=== PATIENT | male | born 1960 | race Caucasian/White ===

== ENCOUNTER 2023-01-20 19:04 | Emergency (ER) | payer MEDICARE, SELFPAY ==
--- NOTE | ~2023-01-20 | CT_ITS ---
EXAMINATION: CT brain wo con DATE: 01/20/2023 19:49 INDICATION: Fall no LOC/HX OF SGTROKE AND LEFT SIDE PARALYSIS . TECHNIQUE: Computed tomography (CT) of the head was performed without intravenous contrast. The mA wa s adjusted according to patient size. Iterative reconstruction technique was employed. The dose-lengt h product was 908.00 mGy-cm. COMPARISON: 04/24/2016. FINDINGS: No acute intracranial hemorrhage or extra-axial fluid collection. No hydrocephalus, mass, or herniation. No acute ischemic infarct. Unremarkable dural venous sinus attenuation. No acute osseous abnormality. The aerated spaces are clear. Mild atrophy and chronic white matter change. Atherosclerotic intracranial calcification. Right sided craniotomy defect. Underlying right temporoparietal encephalomalacia and extensive associated white matter low-density. IMPRESSION: No acute intracranial process. Reviewed, dictated and finalized at location K.
[2023-01-20 19:04] VITALS: BP 154/99; PULSE 104; RESP 18; TEMP 37.6; O2SAT 99
--- NOTE | 2023-01-20 19:07 | ED.FALL ---
HPI - Fall General Chief Complaint: Fall Stated Complaint: Fall; left arm pain and head injury Time Seen by Provider: 01/20/23 19:07 Source: patient, family and RN notes reviewed Mode of arrival: ambulatory Limitations: no limitations History of Present Illness HPI Narrative: patient was on the phone with a friend of his when suddenly the phone by quiet and somebody on the other end of the phone could hear that he was struggling to get up. The friend called family members and family went over there and found him on the floor. They think that he is having some difficulty with his memory. He appeared to have a bloody nose. He said he fell onto his elbow but is not confirmed complaining of any elbow pain. He says that his head does not hurt. Family thought it best to have him checked out thinking he needs CT scan because of the memory problems in the fall. complaint: fall Onset (ago): hour(s) (1.5) Fall from: standing Fall witnessed: no Place fall occurred: home Loss of consciousness: none Prolonged down time: yes Symptoms prior to fall: none Context: tripped/slipped Location of injury: face Location of injury - extremities: Left: elbow Severity: mild Quality: dull and aching Associated symptoms (after fall): denies Related Data Home Medications Medication Instructions Recorded Confirmed amlodipine 10 mg tablet 10 mg PO DAILY 01/20/23 01/20/23 atorvastatin 40 mg tablet 40 mg PO DAILY 01/20/23 01/20/23 hydrochlorothiazide 25 mg tablet 25 mg PO DAILY 01/20/23 01/20/23 levothyroxine 100 mcg tablet 100 mcg PO DAILY 01/20/23 01/20/23 lisinopril 40 mg tablet 40 mg PO DAILY 01/20/23 01/20/23 potassium chloride 20 mEq 20 meq PO DAILY 01/20/23 01/20/23 tablet,extended release spironolactone 25 mg tablet 12.5 mg PO DAILY 01/20/23 01/20/23 Allergies Allergy/AdvReac Type Severity Reaction Status Date / Time No Known Allergies Allergy Verified 01/20/23 19:15 Review of Systems Review of Systems: All systems reviewed & are unremarkable except as noted in HPI and below PMFSH Past Medical History Medical History (Updated 01/20/23 @ 20:10 by Vargas Sherman MD) Brain aneurysm Hyperlipidemia Hypertension Hypothyroidism Surgical History Surgical History (Updated 01/20/23 @ 19:31 by Vargas Sherman MD) H/O brain surgery for aneurysm Social History Social History (Updated 01/20/23 @ 19:31 by Vargas Sherman MD) Smoking status: Never smoker Exam Const: General: healthy appearing, no acute distress and alert Nutritional Appearance: well nourished Orientation/consciousness: patient oriented x3 Limitations: no limitations HENMT: Head: normal to inspection Ears: external ears normal Face/Nose/Sinus: Normal external nose present ( No pain with palpation over the nasal bridge) Face and sinus: normal facial exam Mouth: Yes moist mucous membranes Eyes: Conjunctivae: conjunctivae normal Pupils: Equal, round and reactive pupils present EOM: EOMs intact bilaterally Neck: Neck: normal visual inspection Resp: Effort & Inspection: normal respiratory effort Auscultation: clear to auscultation bilaterally Cardio: Rate: regular rate Rhythm: regular rhythm GI: GI Palp: Yes Soft to palpation and No Tenderness to palpation present (GI) Auscultation: normal bowel sounds Back/Spine/Pelvis: Cervical Spine: cervical ROM normal Thoracic/Lumbar Spine: thoraco-lumbar ROM normal Skin: General skin exam: normal color Rashes: no rashes Neuro: General: patient oriented x3, moves all extremities ( Except for left arm which has a contraction flexure), no focal motor deficits and CN's II-XI intact bilaterally Speech: normal speech Extrem: General: normal exam except as noted ( contraction flexure on the left upper extremity) and no clubbing, cyanosis or edema Left upper extremity: elbow/forearm normal to inspection; no tenderness, no swelling and no ecchymosis Psych: Mental Status: mental status grossly normal Affe
[2023-01-20 19:18] VITALS: BP 154/99; PULSE 104; RESP 18; TEMP 37.6; O2SAT 99
--- NOTE | 2023-01-20 20:09 | PC.NURSE ---
PT IS SITTING UP ON STRETCHER TALKING WITH FAMILY WITHOUT DIFFICULTY. PT IS AWAITING RESULTS AT THIS TIME. NAD NOTED. PT DENIES ANY NEEDS OR COMPLAINTS.
[2023-01-20 20:15] VITALS: BP 142/83; PULSE 96; RESP 18; O2SAT 99
== END 2023-01-20 20:15 | disposition home or self-care (01) ==
PROVIDERS: Emergency Provider Emergency Medicine; PCP Family Medicine
DX: S00.33XA Contusion of nose, initial encounter (principal); E78.5 Hyperlipidemia, unspecified; E03.9 Hypothyroidism, unspecified; I10 Essential (primary) hypertension; W01.0XXA Fall on same level from slipping, tripping and stumbling without subsequent striking against object, initial encounter; Y92.009 Unspecified place in unspecified non-institutional (private) residence as the place of occurrence of the external cause
CPT/HCPCS: 70450; 99284

== ENCOUNTER 2023-02-10 08:56 | Outpatient (RCR) | payer MEDICARE, SELFPAY ==
--- NOTE | 2023-02-10 10:18 | OPREHPOC ---
Outpatient Therapy Plan of Care This is a Multidisciplinary Plan of Care that may contain components documented by all disciplines (PT, OT, and ST.) PT Problem 1 PT Problem #1 Knowledge Deficit PT Goal 1 Goal Patient to demonstrate independence with HEP Target Visit 6 PT Problem 2 PT Problem #2 Impaired Strength PT Goal 1 Goal Patient to demonstrate 4+/5 L hip and knee stength to improve ability to stand up from chair Target Visit 12 PT Problem 3 PT Problem #3 Impaired Functional Mobil PT Goal 1 Goal 1. Patient to improve 5xSTS score to 24 seconds and Tinetti to 19 to decrease fall risk within the home 2. Patient to demonstrate ability to complete 6 min walk test with no rest breaks Target Visit 12
--- NOTE | 2023-02-10 10:19 | PTOPEVAL1 ---
Assessment and note entered by Estefany Chan DPT Evaluation Information Assessment Status Evaluation Diagnosis falls Onset 02/05/23 Subjective Information Patient reports he had a stroke 23 years ago that affected his L side. He reports about 2 weeks ago he fell towards the L side and woke up with a sore L shoulder. He reports he walks with a walking stick at all times. He reports he lives in an apartment with no step or stairs. He reports difficulty with getting up out of a chair and walking prolonged distances. He reports since his fall he has noticed a decrease in balance. Reported Pain Level Pain Score 0: Self Report Assessment PT Clinical Summary Patient is a 63 year old male who presents to PT due to recent fall and L sided weakness. Patient demonstrates decreased L LE strength, impaired posture and impaired gait mechanincs limiting his ability to stand up from chair, ambulate porlonged distances and puts him at increased fall risk. Patient would benefit from skilled PT to address impairments and return to PLOF. Plan of Care PT Services Indicated Yes Treatment Frequency and 3x weekly for 12 visits Duration These treatments will address the objective and functional deficits as defined above. The patient will be advanced safely and appropriately in order for the patient to progress towards his/her prior level of function. Additional exercises will be introduced and as well as a comprehensive home exercise program upon discharge, if needed, ?to ensure carryover of functional gains achieved in the clinic. This treatment plan has been reviewed and agreement upon by the patient.
--- NOTE | 2023-03-03 10:20 | OPREHPOC ---
Outpatient Therapy Plan of Care This is a Multidisciplinary Plan of Care that may contain components documented by all disciplines (PT, OT, and ST.) PT Problem 1 PT Problem #1 Knowledge Deficit PT Goal 1 Goal Patient to demonstrate independence with HEP Target Visit 6 Progress Partially Met Comment assistance by family to perform HEP PT Problem 2 PT Problem #2 Impaired Strength PT Goal 1 Goal Patient to demonstrate 4+/5 L hip and knee stength to improve ability to stand up from chair Target Visit 12 Progress Partially Met PT Problem 3 PT Problem #3 Impaired Functional Mobil PT Goal 1 Goal 1. Patient to improve 5xSTS score to 24 seconds and Tinetti to 19 to decrease fall risk within the home 2. Patient to demonstrate ability to complete 6 min walk test with no rest breaks. met 3. patient to complete TUG in under 60 seconds with sit to standards analyst first attempt. Target Visit 12 Progress Partially Met
--- NOTE | 2023-03-03 10:20 | PTOPPROGNS ---
Assessment and note entered by JT File, PT Evaluation Information Assessment Status Progress Diagnosis falls Onset 02/05/23 Subjective Information patient reports no pain today. he reports he has had no falls since beginning skilled PT. he reports he is compliant with his HEP at home, but requires the assistance of his son to help with exercises. Assessment PT Clinical Summary mr. goel presents to skilled PT services for his 10th skilled therapy visit today. he has had no falls since beginning therapy. however, his performance time on 5x sit to stand has increased. he displays a high fall risk per the 5x sit to stand and TUG. he has made progress in ambulation completing 6 minute walk test without rest. he will benefit from continued skilled PT to further work on his balance, strength, endurance, and functional activity performance to achieve his remaining goals for skilled PT. Plan of Care Interventions Gait Training,Neuro Re-education,Patient/Caregiver Educati,Therapeutic Activities,Therapeutic Exercise PT Services Indicated Yes Treatment Frequency and continue skilled PT x2 more visits per his initial Duration evaluation. These treatments will address the objective and functional deficits as defined above. The patient will be advanced safely and appropriately in order for the patient to progress towards his/her prior level of function. Additional exercises will be introduced and as well as a comprehensive home exercise program upon discharge, if needed, ?to ensure carryover of functional gains achieved in the clinic. This treatment plan has been reviewed and agreement upon by the patient.
--- NOTE | 2023-03-06 17:51 | OPREHPOC ---
Outpatient Therapy Plan of Care This is a Multidisciplinary Plan of Care that may contain components documented by all disciplines (PT, OT, and ST.) PT Problem 1 PT Problem #1 Knowledge Deficit PT Goal 1 Goal Patient to demonstrate independence with HEP Target Visit 6 Progress Met Comment assistance by family to perform HEP, continue to progress PT Problem 2 PT Problem #2 Impaired Strength PT Goal 1 Goal Patient to demonstrate 4+/5 L hip and knee stength to improve ability to stand up from chair Target Visit 16 Progress Partially Met PT Problem 3 PT Problem #3 Impaired Functional Mobil PT Goal 1 Goal 1. Patient to maintain 5xSTS score within 5 seconds and Tinetti to within 2 points. 2. Patient to maintain 6 minute walk distance within 50ft. 3. patient to complete TUG within 5 seconds of current score. Target Visit 16 Progress Partially Met
--- NOTE | 2023-03-06 17:51 | PTOPREEVAL ---
Assessment and note entered by JT File, PT Evaluation Information Assessment Status Re-evaluation Diagnosis falls Onset 02/05/23 Subjective Information Patient reports he has had no falls since his last assessment. He reports that he is consistent with performing his HEP with the help of his son. He notes that he has difficulty walking at an increased pace, but enjoys walking. Reported Pain Level Pain Score 0: Self Report Assessment PT Clinical Summary Mr. Mcguire presents to skilled PT services for his 12th skilled therapy visit today to address fall risk. He reports no falls since starting PT, however he continues to be a high fall risk as assessed by the Tinneti and 5x sit to stand. Patient demonstrated improvement in time with performance of the TUG and 5xSTS this date as compared to last assessment. Additionally, patient increased distance ambulated with 6 minute walk test. Patient would benefit from continued skilled PT in a maintenance format to maintain improvements made in balance, ambulation, safety, and transfers. Plan of Care Interventions Gait Training,Neuro Re-education,Patient/Caregiver Educati,Therapeutic Activities,Therapeutic Exercise PT Services Indicated Yes Treatment Frequency and continue POC 1x/week for additional 4 visits Duration These treatments will address the objective and functional deficits as defined above. The patient will be advanced safely and appropriately in order for the patient to progress towards his/her prior level of function. Additional exercises will be introduced and as well as a comprehensive home exercise program upon discharge, if needed, ?to ensure carryover of functional gains achieved in the clinic. This treatment plan has been reviewed and agreement upon by the patient.
--- NOTE | 2023-04-01 11:32 | PTOPDC ---
Assessment and note entered by JT File, PT Evaluation Information Assessment Status Discharge Diagnosis falls Onset 02/05/23 Subjective Information patient reports he feels Good this date. he reports he has no pain. he reports he has been walking daily and performing exercises at home with his son. he reports he enjoys walking and exercising at home. Reported Pain Level Pain Score 0: Self Report Assessment PT Clinical Summary mr goel presents to skilled PT for his 16th skilled therapy visit. he has been doing maintenance therapy for the past month. he has made progress/maintained all measures taken at last re-evaluation. as of this date, plan to DC patient to trial independent HEP at home with son. he was educated to return to skilled PT if he feels he regresses or if her falls. Plan of Care PT Services Indicated Yes
== END 2023-04-01 15:30 | disposition home or self-care (01) ==
LOC: CHSPT 08:56
PROVIDERS: PCP Family Medicine; Visit Provider Family Medicine
DX: I63.9 Cerebral infarction, unspecified (principal); R29.6 Repeated falls
CPT/HCPCS: 97110; 97150; 97161; 97530; 97750

== ENCOUNTER 2024-02-18 04:54 | Emergency (ER) | payer MEDICARE, SELFPAY ==
[2024-02-18 04:58] VITALS: BP 134/82; PULSE 71; RESP 18; TEMP 36.2; O2SAT 96
--- NOTE | 2024-02-18 05:04 | ED.WEAKNESS ---
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 He called EMS 2 times to help him out. He does not have any specific complaints other than generalized weakness. No fever or chills. No chest pain or shortness of breath. No nausea/ vomiting /abdominal pain/ diarrhea. No new focal neuro deficits. MD Complaint: generalized weakness Onset (ago): day(s) ( One day) Relieving factors: none Exacerbating factors: none Associated symptoms: denies other symptoms Related Data Home Medications Medication Instructions Recorded Confirmed amlodipine 10 mg tablet 10 mg PO DAILY 01/20/23 01/20/23 atorvastatin 40 mg tablet 40 mg PO DAILY 01/20/23 01/20/23 hydrochlorothiazide 25 mg tablet 25 mg PO DAILY 01/20/23 01/20/23 levothyroxine 100 mcg tablet 100 mcg PO DAILY 01/20/23 01/20/23 lisinopril 40 mg tablet 40 mg PO DAILY 01/20/23 01/20/23 potassium chloride 20 mEq 20 meq PO DAILY 01/20/23 01/20/23 tablet,extended release spironolactone 25 mg tablet 12.5 mg PO DAILY 01/20/23 01/20/23 Allergies Allergy/AdvReac Type Severity Reaction Status Date / Time No Known Allergies Allergy Verified 01/20/23 19:15 Review of Systems Review of Systems: All systems reviewed & are unremarkable except as noted in HPI and below Constitutional: Constitutional: Reports as per HPI, Reports no additional constitutional complaints and Reports weakness Eyes: Eyes: Reports as per HPI and Reports no additional eye complaints ENT: Reports system reviewed and no additional complaints, except as documented and Reports as per HPI Cardiovascular: Cardiovascular: Reports as per HPI and Reports no additional cardiovascular complaints Respiratory: Respiratory: Reports as per HPI and Reports no additional respiratory complaints Gastrointestinal: Gastrointestinal: Reports as per HPI and Reports no additional gastrointestinal complaints Genitourinary: Genitourinary: Reports no additional male genitourinary complaints and Reports as per HPI Musculoskeletal: Musculoskeletal: Reports no additional musculoskeletal complaints and Reports as per HPI Integumentary/Breasts: Skin/Breast: Reports system reviewed and no additional complaints, except as docu and Reports as per HPI Neurologic: Reports system reviewed and no additional complaints, except as documented and Reports as per HPI Comments: left-sided spastic weakness Psychiatric: Psychiatric: Reports no additional psychiatric complaints and Reports as per HPI Endocrine: Endocrine: Reports no additional endocrine complaints and Reports as per HPI Hematologic/Lymphatic: Hematologic/Lymphatic: Reports no additional hematologic/lymphatic complaints and Reports as per HPI Allergic/Immunologic: Allergic/Immunologic: Reports no additional allergic/immunologic complaints and Reports as per HPI [facility] Past Medical History Medical History Brain aneurysm Hyperlipidemia Hypertension Hypothyroidism Surgical History Surgical History H/O brain surgery for aneurysm Social History Social History Smoking status: Never smoker Exam Narrative: vitals are stable. Afebrile Const: General: healthy appearing Orientation/consciousness: patient oriented x3 Limitations: no limitations HENMT: Head: normal to inspection Ears: external ears normal Face/Nose/Sinus: Normal external nose present Face and sinus: normal facial exam Mouth: Yes Normal oral and palatal mucos
--- NOTE | 2024-02-18 05:06 | PC.NURSE ---
Dr Ulrich at the bedside
--- NOTE | 2024-02-18 05:12 | PC.NURSE ---
patient was given urinal by musa moralze
[2024-02-18 05:25] LABS: Basophils Absolute Auto 0.05 K/mm3 (0.00-0.10); Basophils Percent Auto 0.5 % (0.0-1.0); Eosinophils Absolute Auto 0.35 K/mm3 (0.02-0.50); Eosinophils Percent Auto 3.7 % (1.0-6.0); Hematocrit 44.1 % (40.0-54.0); Hemoglobin 14.9 g/dL (14.0-18.0); Immature Granulocyte Absolute 0.03 K/mm3 (0.00-0.00); Immature Granulocyte Percent A 0.3 % (0.0-0.0); Lymphocytes Absolute Auto 2.54 K/mm3 (1.10-4.50); Lymphocytes Percent Auto 26.8 % (18.0-42.0); Mean Corpuscular HGB Conc 33.8 g/dL (32-36); Mean Corpuscular Hemoglobin 32.2 pg (27.0-31.0); Mean Corpuscular Volume 95.2 fL (78.0-102.0); Mean Platelet Volume 9.8 fl (8.7-11.0); Monocytes Absolute Auto 0.95 K/mm3 (0.10-0.90); Neutrophils Absolute Auto 5.56 K/mm3 (1.70-7.20); Neutrophils Percent Auto 58.7 % (50.0-70.0); Platelet Count Result 239 K/mm3 (150-420); Red Blood Count 4.63 M/mm3 (4.70-6.10); Red Cell Distribution Width 11.9 % (11.6-14.4); White Blood Count 9.5 K/mm3 (4.8-10.8)
--- NOTE | 2024-02-18 05:35 | PC.NURSE ---
patient attempted to use urinal. unable to urinate into the urinal at this time.
[2024-02-18 05:39] LABS: Alanine Aminotransferase 17 U/L (16-63); Albumin Level 3.3 g/dL (3.4-5.0); Alkaline Phosphatase 113 U/L (46-116); Anion Gap 7 mmol/L (4-12); Aspartate Amino Transferase 17 U/L (15-37); Bilirubin,Total 0.7 mg/dL (0.00-1.00); Blood Urea Nitrogen 16 mg/dL (7-18); Calcium 8.9 mg/dL (8.5-10.1); Carbon Dioxide 30 mmol/L (21-32); Chloride 103 mmol/L (98-108); Estimated CRCL calculation 95 ml/min; Estimated Glomerular Filt Rate > 60; Glucose 111 mg/dL (70-99); Osmolality Calculated 292 mOsm/kg (285-295); Potassium 3.9 mmol/L (3.5-5.1); Sodium 140 mmol/L (136-145)
--- NOTE | 2024-02-18 05:39 | PC.NURSE ---
urine taken to lab by musa moralez
[2024-02-18 05:44] LABS: Lactic Acid Reflex 1.1 mmol/L (0.4-2.0)
[2024-02-18 05:44] LABS: Add Urine Microscopic? NO; Appearance Urine Clear (Clear); Bilirubin Urine Negative (Negative); Blood Urine Negative (Negative); Color Urine Yellow (Yellow); Glucose Urine UA Negative (Negative); Ketones Urine Negative (Negative); Leukocyte Esterase Ur Negative LEU/UL (Negative); Nitrate Urine Negative (Negative); Protein Urine Negative (Negative); Specific Grav Ur 1.025 (1.010-1.020); Urobilinogen Urine 0.2 mg/dL (0.2-1.0)
[2024-02-18 06:00] LABS: Thyroid Stimulating Hormone 2.38 uIU/mL (0.36-3.74); Troponin I 8.8 ng/L (0.00-60.4)
--- NOTE | 2024-02-18 06:11 | PC.NURSE ---
[facility] was called. Will not be able to take patient home until after 0700, shift change. Patient has been notified. Patient verbalized understanding
[2024-02-18 06:12] VITALS: BP 132/80; PULSE 70; RESP 18; O2SAT 97
--- NOTE | 2024-02-18 06:44 | PC.NURSE ---
patient was helped getting his shorts back on and shoes. discharge instructions were placed into a belongings bag to take home
[2024-02-18 07:10] VITALS: BP 137/84; PULSE 78; RESP 16; TEMP 36.6; O2SAT 96
== END 2024-02-18 07:50 | disposition home or self-care (01) ==
PROVIDERS: Emergency Provider Internal Medicine Critical Care Medicine; PCP Family Medicine
DX: R53.1 Weakness (principal); I10 Essential (primary) hypertension; E78.5 Hyperlipidemia, unspecified; E03.9 Hypothyroidism, unspecified; Z86.73 Personal history of transient ischemic attack (TIA), and cerebral infarction without residual deficits
CPT/HCPCS: 36415; 80053; 81003; 83605; 84443; 84484; 85025; 85610; 99284

== ENCOUNTER 2024-03-31 11:14 | Emergency (ER) | payer MEDICARE, SELFPAY ==
[2024-03-31 11:36] VITALS: BP 113/79; PULSE 104; RESP 22; TEMP 36.6; O2SAT 96
[2024-03-31 11:53] LABS: Basophils Absolute Auto 0.02 K/mm3 (0.00-0.10); Basophils Percent Auto 0.2 % (0.0-1.0); Eosinophils Absolute Auto 0.11 K/mm3 (0.02-0.50); Eosinophils Percent Auto 1.1 % (1.0-6.0); Hematocrit 27.7 % (40.0-54.0); Hemoglobin 8.8 g/dL (14.0-18.0); Immature Granulocyte Absolute 0.08 K/mm3 (0.00-0.00); Immature Granulocyte Percent A 0.8 % (0.0-0.0); Lymphocytes Absolute Auto 1.31 K/mm3 (1.10-4.50); Mean Corpuscular HGB Conc 31.8 g/dL (32-36); Mean Corpuscular Hemoglobin 29.8 pg (27.0-31.0); Mean Corpuscular Volume 93.9 fL (78.0-102.0); Monocytes Absolute Auto 0.63 K/mm3 (0.10-0.90); Monocytes Percent Auto 6.2 % (2.0-11.0); Neutrophils Absolute Auto 7.94 K/mm3 (1.70-7.20); Neutrophils Percent Auto 78.7 % (50.0-70.0); Platelet Count Result 242 K/mm3 (150-420); Red Blood Count 2.95 M/mm3 (4.70-6.10); Red Cell Distribution Width 15.3 % (11.6-14.4); White Blood Count 10.1 K/mm3 (4.8-10.8)
[2024-03-31] MEDS: NEOMYCIN/POLYMYXIN/BACITRACIN OINTMENT PACKET 1 PACKET TOPICAL (11:53)
[2024-03-31] MEDS: SODIUM CHLORIDE 0.9% IV 1,000 ML 999 ML IV CONT (11:53)
--- NOTE | 2024-03-31 12:08 | ED.BACK ---
HPI - Back Pain/Injury General Chief Complaint: Wound/Laceration Stated Complaint: infected incision site Time Seen by Provider: 03/31/24 11:22 Source: patient and EMS Mode of arrival: EMS Limitations: no limitations History of Present Illness HPI Narrative: this is a 64-year-old gentleman that presents via EMS from senior care after senior care staff called with a wound on patient has mid back, the patient is status post back surgery x1 week and has an area that is well-approximated with no losing there is some mild redness and erythema with no tracking of the wound there is no fever chills back pain is mild no chest pain no shortness of breath no nausea vomiting or abdominal pain. MD elicited complaint: other Pertinent past history: prior back pain and back surgery Onset (ago): week(s) Timing: constant Severity: mild Location: thoracic spine Related Data Home Medications Medication Instructions Recorded Confirmed acetaminophen 500 mg tablet 1,000 mg PO Q6H PRN 03/30/24 03/30/24 (Tylenol Extra Strength) apixaban 5 mg tablet (Eliquis) 5 mg PO BID 03/30/24 03/30/24 atorvastatin 40 mg tablet 40 mg PO QHS 03/30/24 03/30/24 cyclobenzaprine 5 mg tablet 5 mg PO BID PRN 03/30/24 03/30/24 levothyroxine 100 mcg capsule 100 mcg PO DAILY 03/30/24 03/30/24 omega-3 fatty acids-fish oil 300 1 cap PO DAILY 03/30/24 03/30/24 mg-500 mg capsule (Fish Oil) potassium chloride 25 mEq oral 25 meq PO DAILY 03/30/24 03/30/24 packet sennosides 8.6 mg tablet (senna) 8.6 mg PO BID 03/30/24 03/30/24 tamsulosin 0.4 mg capsule 0.4 mg PO DAILY 03/30/24 03/30/24 Allergies Allergy/AdvReac Type Severity Reaction Status Date / Time No Known Allergies Allergy Verified 03/30/24 13:31 Review of Systems Review of Systems: All systems reviewed & are unremarkable except as noted in HPI and below PMFSH Past Medical History Medical History Cerebrovascular accident (CVA) with involvement of left side of body Lumbar compression fracture Social History Social History Smoking status: Never smoker Exam Const: General: no acute distress and alert Nutritional Appearance: well nourished and obese Orientation/consciousness: patient oriented x3 Limitations: no limitations Eyes: Conjunctivae: conjunctivae normal Neck: Neck: normal visual inspection Chest: Chest palpation & inspection: normal inspection of the chest Resp: Effort & Inspection: normal respiratory effort Auscultation: clear to auscultation bilaterally Cardio: Rate: regular rate Rhythm: regular rhythm GI: GI Palp: Yes Soft to palpation Auscultation: normal bowel sounds Back/Spine/Pelvis: Back: no CVA tenderness Skin: Wounds: wounds noted Neuro: General: patient oriented x3 Cranial nerves: Yes Nystagmus not present Extrem: General: normal to inspection Course Course Emergency Course: Area on the mid back status post surgery as well approximated does have some mild redness but there is no drainage, labs reviewed white count is within normal range patient received a L of fluids and dose of triple antibiotic ointment and 1g IV ceftriaxone. Advised follow-up with his primary and wound care consult. Vital Signs Vital signs: Vital Signs Temperature 36.6 C 03/31/24 11:36 Pulse Rate 104 H 03/31/24 11:36 Respiratory Rate 22 H 03/31/24 11:36 Blood Pressure 113/79 03/31/24 11:36 Pulse Oximetry 96 03/31/24 11:36 Oxygen Delivery Room Air 03/31/24 11:36 Temperature 36.6 C 03/31/24 11:36 Pulse Rate 104 H 03/31/24 11:36 Respiratory Rate 22 H 03/31/24 11:36 Blood Pressure 113/79 03/31/24 11:36 Pulse Oximetry 96 03/31/24 11:36 Oxygen Delivery Room Air 03/31/24 11:36 MDM - Back Pain/Injury Lab Data 03/31/24 11:48 03/31/24 11:48 Labs: Lab Results 03/31/24 Range/Units 11:48 WBC
[2024-03-31 12:11] LABS: Alanine Aminotransferase 16 U/L (16-63); Albumin Level 1.8 g/dL (3.4-5.0); Alkaline Phosphatase 167 U/L (46-116); Anion Gap 9 mmol/L (4-12); Aspartate Amino Transferase 16 U/L (15-37); Bilirubin,Total 0.6 mg/dL (0.00-1.00); Blood Urea Nitrogen 10 mg/dL (7-18); Calcium 8.4 mg/dL (8.5-10.1); Carbon Dioxide 27 mmol/L (21-32); Chloride 98 mmol/L (98-108); Estimated CRCL calculation 101 ml/min; Estimated Glomerular Filt Rate > 60; Glucose 133 mg/dL (70-99); Osmolality Calculated 279 mOsm/kg (285-295); Potassium 3.5 mmol/L (3.5-5.1); Sodium 134 mmol/L (136-145); Total Protein 5.7 g/dL (6.4-8.2)
[2024-03-31 12:14] LABS: Lactic Acid Reflex 2.9 mmol/L (0.4-2.0)
[2024-03-31 12:21] VITALS: BP 123/67; PULSE 93; RESP 18; TEMP 36.6; O2SAT 98
[2024-03-31 14:50] LABS: Reflex Lactic Acid Yes or No Add Lactic
--- NOTE | 2024-04-06 12:20 | PC.NURSE ---
blood culture reviewed, no growth in 5 days
== END 2024-03-31 13:00 ==
PROVIDERS: Emergency Provider Emergency Medicine; PCP Family Medicine
DX: L03.312 Cellulitis of back [any part except buttock and flank] (principal); Z98.890 Other specified postprocedural states
CPT/HCPCS: 36415; 80053; 83605; 85025; 87040; 96365; 99284; J0696; J7030

== ENCOUNTER 2024-04-11 17:36 | Emergency (ER) | payer MEDICARE, SELFPAY ==
--- NOTE | 2024-04-11 17:49 | ED.GENADULT ---
HPI - General Adult General Chief complaint: Wound/Laceration Stated complaint: back pain Time Seen by Provider: 04/11/24 17:39 Source: patient and EMS Mode of arrival: EMS History of Present Illness HPI narrative: 64 YEARS OLD WHITE MALE CAME FROM [facility] BECAUSE OF INFECTED SURGICAL WOUND AND DEHISCENCE. PATIENT STATUS POST BACK SURGERY ON AT [facility] LAST TIME WAS SEEN BY HIS SURGEON 1 WEEK AGO AND WAS TOLD EVERYTHING LOOKS OKAY. TODAY 1 OF THE NURSES TRYING TO PLACE OINTMENT ON THE WOUND AND FOUND THAT THE PATIENT HAVE A LARGE HOLE AT THE SURGICAL SCAR WHICH WAS NOT THERE 3 DAYS AGO ASSOCIATED WITH LOT OF PURULENT DISCHARGE AND SURROUNDED BY ERYTHEMA. SHE PLACED WET TO DRY DRESSING AND CALL 911. PATIENT DENIES ANY SYMPTOMS. NO FEVER, CHILLS ,NAUSEA OR VOMITING Related Data Home Medications Medication Instructions Recorded Confirmed potassium chloride 20 mEq 20 meq PO DAILY 01/20/23 04/11/24 tablet,extended release acetaminophen 500 mg tablet 1,000 mg PO Q6H PRN Pain, Moderate 03/30/24 04/11/24 (Tylenol Extra Strength) atorvastatin 40 mg tablet 40 mg PO QHS 03/30/24 04/11/24 cyclobenzaprine 5 mg tablet 5 mg PO BID PRN Back Pain 03/30/24 04/11/24 levothyroxine 100 mcg capsule 100 mcg PO DAILY 03/30/24 04/11/24 tamsulosin 0.4 mg capsule 0.4 mg PO DAILY 03/30/24 04/11/24 apixaban 5 mg tablet (Eliquis) 5 mg PO BID 04/11/24 04/11/24 sennosides 8.6 mg-docusate sodium 1 tab-cap PO BID 04/11/24 04/11/24 50 mg capsule (Senna Plus) Allergies Allergy/AdvReac Type Severity Reaction Status Date / Time No Known Allergies Allergy Verified 04/11/24 18:37 Review of Systems Review of Systems: All systems reviewed & are unremarkable except as noted in HPI and below PMFSH Past Medical History Medical History Brain aneurysm Cerebrovascular accident (CVA) with involvement of left side of body Hyperlipidemia Hypertension Hypothyroidism Lumbar compression fracture Surgical History Surgical History H/O brain surgery for aneurysm Social History Social History Smoking status: Never smoker Exam Narrative: GENERAL APPEARANCE: WELL-DEVELOPED, WELL-NOURISHED SKIN: BACK EXAM SHOWED 10 X 4 CM OPEN WOUND ADD A SURGICAL SCAR AT THE LEFT SIDE OF MID BACK STUFFED WITH DRY GAUZE, SURROUNDED BY EXTENSIVE ERYTHEMA, NO DISCHARGE HEAD: NORMOCEPHALIC, NONTRAUMATIC EYES: CLEAR CONJUNCTIVA ENT: DRY ORAL CAVITY NECK: SUPPLE, NONTENDER CHEST AND RESPIRATORY: AIRWAY PATENT, NO RESPIRATORY DISTRESS, NO ACCESSORY MUSCLE USE HEART: REGULAR RATE/RHYTHM ABDOMEN: SOFT, NONTENDER, NO ORGANOMEGALY, QUIET BOWEL SOUNDS NEUROLOGIC: ALERT AND ORIENTED ?3, FINANCIAL AID ADVISOR IS NORMAL TESTED, Course Consultations Consultation #1: DR VILLAGRAN, NEUROSURGEON ON-CALL AT [facility] WHO ACCEPTED PATIENT TRANSFERRED TO THE ED. CURRENTLY THE ED IS FALL, REQUESTED TO GIVE THEM A CALL IN 1 HOUR. Date: 04/11/24 Time: 18:37 Vital Signs Vital signs: Vital Signs Temperature 36.9 C 04/11/24 17:54 Pulse Rate 99 04/11/24 17:54 Respiratory Rate 20 04/11/24 17:54 Blood Pressure 127/89 04/11/24 17:54 Pulse Oximetry 100 04/11/24 17:54 Oxygen Delivery Room Air 04/11/24 17:54 Temperature 36.4 C 04/11/24 19:05 Pulse Rate 114 H 04/11/24 20:18 Respiratory Rate 20 04/11/24 20:18 Blood Pressure 122/72 04/11/24 20:18 Pulse Oximetry 97 04/11/24 20:18 Oxygen Delivery Room Air 04/11/24 20:18 Medical Decision Making [facility] Narrative Medical decision making narrative: PATIENT PRESENTS WITH DEHISCED WOUND ON THE BACK STATUS POST SURGERY . VITAL SIGNS ARE STABLE PHYSICAL EXAMINATION ABOVE DIFFERENTIAL DIAGNOSIS DEHI
[2024-04-11 17:54] VITALS: BP 127/89; PULSE 99; RESP 20; TEMP 36.9; O2SAT 100
[2024-04-11 18:41] LABS: Basophils Absolute Auto 0.03 K/mm3 (0.00-0.10); Basophils Percent Auto 0.3 % (0.0-1.0); Eosinophils Absolute Auto 0.22 K/mm3 (0.02-0.50); Eosinophils Percent Auto 2.2 % (1.0-6.0); Hematocrit 22.8 % (40.0-54.0); Hemoglobin 7.1 g/dL (14.0-18.0); Immature Granulocyte Absolute 0.07 K/mm3 (0.00-0.00); Immature Granulocyte Percent A 0.7 % (0.0-0.0); Lymphocytes Percent Auto 19.3 % (18.0-42.0); Mean Corpuscular HGB Conc 31.1 g/dL (32-36); Mean Corpuscular Volume 93.1 fL (78.0-102.0); Mean Platelet Volume 8.8 fl (8.7-11.0); Monocytes Absolute Auto 0.94 K/mm3 (0.10-0.90); Monocytes Percent Auto 9.5 % (2.0-11.0); Neutrophils Absolute Auto 6.71 K/mm3 (1.70-7.20); Platelet Count Result 368 K/mm3 (150-420); Red Blood Count 2.45 M/mm3 (4.70-6.10); Red Cell Distribution Width 15.6 % (11.6-14.4); White Blood Count 9.9 K/mm3 (4.8-10.8)
[2024-04-11] MEDS: SODIUM CHLORIDE 0.9% IV 1,000 ML 999 ML IV CONT (18:48)
[2024-04-11 18:55] LABS: Alanine Aminotransferase 11 U/L (16-63); Albumin Level 1.9 g/dL (3.4-5.0); Alkaline Phosphatase 137 U/L (46-116); Anion Gap 7 mmol/L (4-12); Aspartate Amino Transferase 20 U/L (15-37); Bilirubin,Total 0.6 mg/dL (0.00-1.00); Blood Urea Nitrogen 10 mg/dL (7-18); CRP 10.3 mg/dL (0.0-0.9); Calcium 8.4 mg/dL (8.5-10.1); Carbon Dioxide 31 mmol/L (21-32); Chloride 97 mmol/L (98-108); Estimated CRCL calculation 121 ml/min; Estimated Glomerular Filt Rate > 60; Glucose 101 mg/dL (70-99); Osmolality Calculated 279 mOsm/kg (285-295); Potassium 3.6 mmol/L (3.5-5.1); Sodium 135 mmol/L (136-145); Total Protein 5.7 g/dL (6.4-8.2)
[2024-04-11 19:00] LABS: Lactic Acid Reflex 1.3 mmol/L (0.4-2.0)
[2024-04-11 19:05] VITALS: BP 118/75; PULSE 114; RESP 20; TEMP 36.4; O2SAT 97
[2024-04-11] MEDS: VANCOMYCIN 1,250 MG/NS 250 ML 1,250 MG/250 ML BAG 166.67 MG IVPB (20:01)
[2024-04-11 20:18] VITALS: BP 122/72; PULSE 114; RESP 20; O2SAT 97
--- NOTE | 2024-04-11 21:04 | PC.NURSE ---
PT SON , JORY RETURNED CALL. INFORMED OF PT TRANSFER TO [facility], VOICED UNDERSTANDING
--- NOTE | 2024-04-14 12:09 | PC.NURSE ---
PRELIMINARY BLOOD CULTURE RESULTS X2: NO GROWTH TO DATE
--- NOTE | 2024-04-18 13:29 | PC.NURSE ---
Final blood culture result: No growth after 5 days.
== END 2024-04-11 20:49 | disposition short-term general hospital (02) ==
PROVIDERS: Emergency Provider Emergency Medicine; PCP Family Medicine
DX: T81.49XA Infection following a procedure, other surgical site, initial encounter (principal); B99.9 Unspecified infectious disease; D64.9 Anemia, unspecified; I10 Essential (primary) hypertension; E78.5 Hyperlipidemia, unspecified; E03.9 Hypothyroidism, unspecified; Z79.01 Long term (current) use of anticoagulants; Z79.899 Other long term (current) drug therapy; Z86.73 Personal history of transient ischemic attack (TIA), and cerebral infarction without residual deficits
CPT/HCPCS: 36415; 80053; 83605; 85025; 86140; 87040; 96361; 96365; 99285; J3370; J7030